=== PATIENT | male | born 1960 | race Caucasian/White ===

== ENCOUNTER 2023-05-31 07:45 | Outpatient (CLI) | payer OTHER, SELFPAY ==
--- NOTE | ~2023-05-31 | XR_ITS ---
Right Shoulder Technique: AP and axillary views were obtained. Clinical History: Pain Findings: No fracture or dislocation is seen. Osseous alignment is anatomic. The glenohumeral and acr omioclavicular joint spaces are preserved. Soft tissues are unremarkable. Impression: Unremarkable right shoulder radiographs. Reviewed, dictated and finalized at [facility]. Impression: Unremarkable right shoulder radiographs.
== END 2023-05-31 07:46 ==
PROVIDERS: PCP Nurse Practitioner Family; Visit Provider Nurse Practitioner Family
DX: M25.511 Pain in right shoulder (principal)
CPT/HCPCS: 73030

== ENCOUNTER 2024-03-27 08:32 | Outpatient (CLI) | payer OTHER, SELFPAY ==
--- NOTE | 2024-03-27 | ECG_ITS ---
Test Date: 2024-03-27 09:00:53 Measurements Intervals [place] Rate: 62 P: 9 NC: 235 QRS: -11 QRSD: 89 T: 44 QT: 366 QTc: 372 Interpretive Statements SINUS RHYTHM WITH FIRST DEGREE AV BLOCK POSSIBLE RIGHT VENTRICULAR CONDUCTION DELAY CANNOT R/O SEPTAL INFARCT, AGE INDETERMINATE ABNORMAL ECG No previous ECG available for comparison Electronically Signed On 03-27-2024 09:10:29 FOOD TECHNICIAN by Olayinka Canas D.O.
--- OUTSIDE RECORDS SUMMARY | 2024-03-27 08:42 | XMS_ITS | CONTINUITY OF CARE DOCUMENT ---
Author Name [email or web address] Address Unknown Organization [facility] Address [address] [facility] [address] [place] [address] Phone [phone] Care Team Providers Care Systems Software Specialist Name Role Phone Esteban Wheeler MD Unavailable Esteban Wheeler MD Unavailable [phone] BOBY SCHILLING MD Unavailable [phone] PROBLEMS Condition Status Date Provider Notes Coronary arterial disease active Angeles rubalcava VITAL SIGNS Date Observation Value Provider blood pressure, diastolic 90 mm[Hg] Marquis Shrestha RN blood pressure, systolic 150 mm[Hg] Huber Shrestha RN SOCIAL HISTORY Date Observation Value Provider smoking status Never smoker Huber Shrestha RN FUNCTIONAL STATUS Date Observation Value Provider periodic limb movement index absent (0) Huber Shrestha RN INSURANCE PROVIDERS Payer name Policy type / Coverage type [place] [employer] [place] SELF PAY [id number] HISTORY OF PROCEDURES Procedure Date Procedure Name Provider Procedure Notes S tatus Stress EKG Nancy Burks MD completed
--- OUTSIDE RECORDS SUMMARY | 2024-03-27 08:42 | XMS_ITS | Clinical Summary ---
Author Organization [facility] Address [facility] [facility] [address] [place] [address] Care Team Providers Care Student Accounts Coordinator Name Role Phone Unavailable Primary Care Provider Unavailabl e Social History Tobacco Use Types Packs/Day Years Used Date Smoking Tobacco: Never Assessed Sex and Gender Information Value Date Recorded Sex Assigned at Not on file Legal Sex Male 7:01 PM CDT Gender Identity Not on file Sexual Orientation Not on file Plan of Treatment Health Maintenance Due Date Last Done Comments Colorectal Cancer Screening Colonoscopy (10 Years) 1960 Annual Physical 1963 Hepatitis C 1978 DTaP, Tdap and Td Vaccines ( 1 - Tdap) 1979 Zoster Vaccines (1 of 2) 2010 COVID-19 Vaccine (2023-2 5 season) 2023 Influenza Adult (#1) 2023 RSV Immunization or 60+ Years (1 - 1-dose 75+ series) 2035 Meningococcal B Vaccine Aged Out No l onger eligible based on patient's age to complete this topic Meningococcal Vaccine Aged Out No caio efe eligible based on patient's age to complete this topic Pneumococcal Vaccine: Pediat rics (0 to 5 Years) and At-Risk Patients (6 to 64 Years) Aged Out No longer eligible b ased on patient's age to complete this topic RSV Immunizations Under 20 Months Aged Out No longer eligible based on patient's age to complete this topic
--- OUTSIDE RECORDS SUMMARY | 2024-03-27 08:42 | XMS_ITS | Clinical Summary ---
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 Gender Identity Not on file Sexual Orientation Not on file Plan of Treatment Health Maintenance Due Date Last Done Comments DTAP/TDAP/TD VACCINES (1 - Tdap) 1979 COLORECTAL SCREENING 2005 Colorectal Cancer Screening 2005 FIT-DNA Q 3 years 2005 FIT/FOBT Q 1 year 2005 Flex Sig/CT Colonography Q 5 years 2005 ZOSTER VACCINE (1 of 2) 2010 INFLUENZA VACCINE (#1) 2023 RSV VACCINE (60+ or ) (1 - 1-dose 75+ series) 2035 Insurance RX [employer] RX Member Subscriber Plan / Payer (Ef fective 2022-Present) Name:Juan Cifuentes Relation to Subscriber:Self Name:Juan Cifuentes Subscriber ID:Not on file Payer ID:Not on file Group ID:[id number] Type:RX Commercial Address: [address]
--- OUTSIDE RECORDS SUMMARY | 2024-03-27 08:42 | XMS_ITS | Data Portability ---
Author Organization [place] [facility], Main Office Address [address] [place] [address] Care Team Providers Care Decorator Inspector Name Role Phone ALVA SONG Bridge Crew Member ORTIZ CLANCY Primary Care Provider ORTIZ CLANCY Referring Provider Assessment Encounter Date Assessment Date Assessment LastModified by Organization Details LastModified Time 12/07/2023 12/07/2023 63-year-old male presents for evaluation of his right knee. 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 He was going up the stairs on [email or web address] tank when he twisted his knee. He had immediate pain and difficulty with weight-bearing. Since then, he has been wearing a brace and compressive sleeve, taking Tylenol. He still has pain with walking and twisting and persistent catching and locking up of the knee. He currently rates his pain as 4/10. Review of systems per patient questionnaire Physical exam: He has antalgic gait. Tenderness palpation medial joint line. Range of motion 5-130. Pain at terminal flexion. Positive Konrad's. 1A Gopi, stable posterior drawer, stable varus and valgus stress. X-rays reviewed, demonstrating no acute bony abnormality, preserved joint space. MRI was reviewed, demonstrating a tear of the posterior medial meniscus Given his mechanical symptoms and failure conservative management, we discussed surgery for knee arthroscopy partial meniscectomy. We also discussed the recovery process. He may remain on regular duty at his desk job in the meantime. He does have a cardiac history with a triple bypass and he will need cardiac clearance prior to surgery. Risks, benefits, and alternatives to surgery were discussed with the patient. Risks include but are not limited to pain, stiffness, infection, bleeding, blood clot, injury to other structures including nerves or blood vessels, need for future surgery, and anesthesia risks. We discussed the goal of surgery is to improve symptoms but there is no guarantee of improvement and it is possible the patient's condition is worse after surgery. Patient agreed and would like to proceed. [email or web address] Not available 12/07/2023 18:10:37 03/23/2024 03/23/2024 64-year-old patient presents today for preop appointment before right knee partial meniscectomy scheduled on 04/03/2024. He is still experiencing pain medially. He states it is catching his locking is not happening as often, but still happens occasionally. Still has severe pain with planting and twisting motions. 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 In 2013 he had a quadruple bypass surgery. He is not on blood thinners. He states he does not have a production mechanic that he follows up with. He had an EKG about 1 year ago through his primary and follows up with them yearly. Physical exam: He has antalgic gait. Tenderness palpation medial joint line. Range of motion 5-130. Pain at terminal flexion. Positive Konrad's. Stable ligaments. We discussed that we will need him to have either cardiac clearance or clearance through his PCP for this surgery. We will send a form to his PCP for clearance. Risks, benefits, and alternatives to surgery were discussed with the patient. Risks included but are not limited to pain, stiffness, infection, injury to other structures including nerves or blood vessels, need for future surgery, and anesthesia complications. The goal of surgery is to improve symptoms but there is no guarantee of any results and it is possible the condition is worse after surgery. Patient agreed and would like to proceed with right knee partial menisectomy. [email or web address] Not available 03/23/2024 11:10:05 Plan of Treatment Reminders Order Date Submit Date Provider Last Modified By Organization Details Last Modified Time Details Appointments Surgery 2024 07:00A M Del Muller MD Not available Not available Not available Post-Op 10 2024 09:00A Sha Hamilton NP Not available Not available Not available Lab None recorded . Referral None recorded . Procedures None recorded . Surgeries None recorded . Imaging None recorded . Medication Orders None recorded . Patient TargetsNo targets recorded. Patient InstructionsNo instructions recorded. Reason for Referral None Reported. Results Created Date Observation Date Name Description Value Unit Range Abnormal Flag Note LastModifiedBy Organization Detail LastModifiedTime 12/06/19 24 11/30/2023 MRI, knee, w/o contr ast No observ ation record ed. [email or web address] Not Available 11/21 12:20:22 Result Notes None recorded. Problems Name Problem SNOMED Code Status Onset Date Resolution Date Notes Provider Name and Address Organization Details Recorded Time Pain of right knee joint 229720380188643 Active 2023 KAYLIE Haynes [facility] 4 09:53:11 Tear of medial meniscus of knee 986974919 Active 2023 Shari jorge [facility] 4 10:11:42 Problem Notes None recorded. Procedures Surgical History Date Name Laterality Status Provider Name and Address Organization Details Recorded Time open heart surgery completed Raiza Turcios CNA [facility] 12/07/2023 09:52:29 Imaging Results Imaging Date Name Status LastModified by Organiz ation Details LastModified Time 11/30/2023 MRI, knee, w/o contrast completed [email or web address] Information not available 12/06/2023 12:20:22 Procedure Notes None recorded. Medical Equipment None Reported. Allergies No known drug allergies Medications Name Sig Start Date Stop Date Status Note LastModified by Organization Details LastModified Time cyclobenzap rine 10 mg tablet TAKE 1 TABLET BY MOUTH EVERY DAY AT BEDTIME NEEDED FOR MUSCLE SPASM 12/06 completed Not Available Not Available Not Available azithromyci n 250 mg tablet active Not Available Not Available Not Available naproxen sodium 550 mg tablet TAKE 1 TABLET BY MOUTH EVERY 12 HOURS NEEDED FOR PAIN 12/06 completed Not Available Not Available Not Available lisinopril 40 mg tablet TAKE 1 TABLET BY MOUTH ONCE DAILY active Not Available Not Available No t Available amoxicillin 875 mg-potassiu m clavulanate 125 mg tablet TAKE 1 TABLET BY MOUTH EVERY 12 HOURS active Not Available Not Available No t Available cholecalcif ramo (vitamin D3) 1,250 mcg (50,000 unit) capsule TAKE 1 CAPSULE BY MOUTH EVERY WEEK 12/06 completed Not Available Not Available Not Available Farxiga 5 mg tablet TAKE 1 TABLET BY MOUTH ONCE DAILY active Not Available Not Available No t Available Ozempic 1 mg/dose (4 mg/3 mL) subcutaneou s pen injector INJECT 1 MG UNDER THE SKIN ONCE WEKLY active Not Available Not Available No t Available FreeStyle Solange 3 Sensor device USE DIRECTED 12/06 completed Not Available Not Available Not Available Ozempic 0.25 mg or 0.5 mg (2 mg/3 mL) subcutaneou s pen injector INJECT 0.5 MG UNDER THE SKIN ONCE A WEEK DIRECTED active Not Available Not Available No t Available Vitals Date Recorded Body height Body mass index (BMI) Body weight Provider Name and Address Organization Details Last Updated DateTime 12/07/2023 177.8 cm 26.5 kg/m2 57425.59 g Raiza Turcios CNA [facility] [facility] [employer] 12/07/2023 09:50:16 Date Recorded Body height Body mass index (BMI) Body weight Pain severity - 0-10 verbal numeric rating [Score] - Reported Provider Name and Address Organization Details Last Updated DateTime 03/23/2024 177.8 cm 26.5 kg/m2 98965.59 g 4 Kayce Marquez Binta [facility] [employer] [facility] 03/23/2024 09:24:58 Social History Question Answer Notes LastModified by Organizat ion Details LastModified Time Tobacco Smoking Status Never Smoker [facility] [employer] 12/07/2023 09:52:11 What Is Your Level Of Alcohol Consumption? Occasional Information not available 12/07/2023 Sex: Unknown Functional Status None recorded. Mental Status None recorded. Family History Relationship Description Onset Age of this Age Resolved Age Notes LastModified by Organization Details LastModified Time Father Heart disease [email or web address] Not available 2023 09:51:33 Father Hypertensive disorder [email or web address] Not available 2023 09:51:46 Father Diabetes mellitus Not available 10/16/ 2024 09:51:58 Brother Heart disease [email or web address] Not available 2023 09:51:33 Brother Hypertensive disorder [email or web address] Not available 2023 09:51:46 Brother Diabetes mellitus [email or web address] Not available 2023 09:51:58 Medical History Condition Response DIABETES, TYPE Y VASCULAR DISEASE Y HYPERTENSION Y Past Encounters Encounter ID Performer Location Encounter Start Date Encounter Closed Date Diagnosis/Indication Diagnosis SNOMED-CT Code Diagnosis ICD10 Code Diagnosis Note [id number] Del Muller MD [facility] [address] [place] [address] 12/07/2023 09:22:28 12/07/2023 10:18:24 Pain of right knee joint 5403198387 52086 M25.561 Tear of me dial meniscus of knee 138514987 S83.241A [id number] Jessenia Hamilton NP [facility] [address] [place] [address] 03/23/2024 09:23:29 03/23/2024 10:07:09 Tear of medial meniscus of knee 177976638 S83.241A Pain of ri ght knee joint 4520538086 59311 M25.561 Health Concerns Section Related Observation LastModified by Organization Detai ls LastModified Time None Recorded Concern Status LastModified by Organization Details LastModified Time None Recorded Advance Directives Directive None Recorded Payers Encounter Date Sequence Insurance Name Policy Number Policy Leigh Covered Member ID Leigh Member ID Guarantor Name 12/07/2023 [place] JOCELYN Cifuentes 03/23/2024 [employer] JOCELYN Cifuentes
[2024-03-27 09:04] LABS: Anion Gap 10 mmol/L (4-12); Blood Urea Nitrogen 15 mg/dL (9-20); Calcium 9.4 mg/dL (8.4-10.2); Carbon Dioxide 26 mmol/L (22-30); Chloride 101 mmol/L (98-107); Estimated Glomerular Filt Rate > 60; Glucose 187 mg/dL (65-110); Potassium 4.5 mmol/L (3.4-5.0); Sodium 137 mmol/L (137-145)
== END 2024-03-27 08:33 | disposition home or self-care (01) ==
LOC: ANHLAB 08:32
PROVIDERS: PCP Family Medicine; Visit Provider Nurse Anesthetist, Certified Registered
DX: Z01.818 Encounter for other preprocedural examination (principal); I44.0 Atrioventricular block, first degree; R94.31 Abnormal electrocardiogram [ECG] [EKG]; I10 Essential (primary) hypertension; E11.9 Type 2 diabetes mellitus without complications
CPT/HCPCS: 36415; 80048; 93005